=== PATIENT | female | born 1985 | race African-American/Black ===

== ENCOUNTER 2018-07-17 20:37 | Emergency (ER) | payer OTHER ==
[2018-07-17] MEDS: METOCLOPRAMIDE INJ 10MG/2ML VIAL (J2765) IV (22:29)
[2018-07-17] MEDS: NS 1,000 ML IV (22:30)
[2018-07-17] MEDS: KETOROLAC 30 MG/ML VIAL (J1885) IV (22:30)
[2018-07-17] MEDS: NORCO 5/325MG TABLET (BULK FOR ED) PO (23:40)
[2018-07-17] MEDS: ONDANSETRON 4MG/2ML VIAL (J2405) IV (23:40)
== END 2018-07-18 00:29 | disposition home or self-care (01) ==
LOC: M ED 07-18 00:29
DX: G43.909 Migraine, unspecified, not intractable, without status migrainosus (principal); Z88.5 Allergy status to narcotic agent
CPT/HCPCS: J2405

== ENCOUNTER 2018-11-02 15:17 | Emergency (ER) | payer OTHER ==
[~2018-11-02] VITALS: Ht 175.3 cm; Wt 65.9 kg
[~2018-11-02 15:17] MED LIST: EXCETAB80 PO; RIZA10TA2 PO; VITMTA PO
[2018-11-02] MEDS ORDERED: IRON27TA2 PO (15:22)
[2018-11-02] MEDS ORDERED: NS 1,000 ML IV ONE (15:45)
[2018-11-02 16:03] LABS: BASO % 0.5 % (0.0-1.0); EOS # 0.1 10^3/uL (0.0-0.50); EOS % 1.6 % (0.0-3.0); HEMATOCRIT 32.5 % (36.0-47.0); LYMPH # 1.7 10^3/uL (1.5-4.5); LYMPH % 21.4 % (24.0-44.0); MEAN CORPUSCULAR HEMOGLOBIN 20.8 pg (27.0-33.0); MEAN CORPUSCULAR HGB CONC 30.8 g/dl (32.0-36.5); MEAN CORPUSCULAR VOLUME 67.7 fl (80.0-96.0); MONO # 0.6 10^3/uL (0.0-0.8); MONO % 7.8 % (0.0-5.0); NEUTROPHILS # 5.4 10^3/uL (1.8-7.7); NEUTROPHILS % 68.2 % (36.0-66.0); PLATELET COUNT, AUTOMATED 340 10^3/uL (150-450)
[2018-11-02] MEDS ORDERED: METOCLOPRAMIDE INJ 10MG/2ML VIAL (J2765) IV ONE (16:30)
[2018-11-02 16:42] LABS: ALBUMIN 3.9 GM/DL (3.2-5.2); ALT/SGPT 30 U/L (12-78); BILIRUBIN,TOTAL 0.4 MG/DL (0.2-1.0); BLOOD UREA NITROGEN 4 MG/DL (7-18); CARBON DIOXIDE LEVEL 25 MEQ/L (21-32); CHLORIDE LEVEL 107 MEQ/L (98-107); CREATININE FOR GFR 0.66 MG/DL (0.55-1.30); GLOMERULAR FILTRATION RATE > 60.0 (>60); GLUCOSE, FASTING 74 MG/DL (70-100); HCG, SERUM QUANTITATIVE 68 MIU/ML; POTASSIUM SERUM 3.7 MEQ/L (3.5-5.1); SODIUM LEVEL 139 MEQ/L (136-145); TOTAL PROTEIN 8.1 GM/DL (6.4-8.2)
--- NOTE | 2018-11-02 17:22 | REPVR ---
EXAM: US First Trimester, Transabdominal and US , Transvaginal EXAM DATE/TIME: 11/02/2018 5:08 PM CLINICAL HISTORY: 32 years old, female; Signs and symptoms; Lmp or gestational age (in weeks): 4w5d; Other: Bleeding; ; Additional info: , bleeding TECHNIQUE: Real-time transabdominal obstetrical ultrasound of the maternal pelvis and a first trimester , less than 14 weeks 0 days, with image documentation. Transvaginal imaging was used for better evaluation of the fetus and adnexa. COMPARISON: No relevant prior studies available. FINDINGS: GESTATION: Gestation: No gestational sac demonstrated. No pole demonstrated. No yolk sac demonstrated. Heart rate: No cardiac activity demonstrated. Placenta: Unremarkable. No subchorionic bleed. Amniotic fluid: Amniotic and chorionic fluid are normal for gestational age. Estimated gestational age: 4.5 weeks by LMP of 09/30/2018 MATERNAL: Uterus: Uterus measures 8.4 x 4.1 x 5.6 cm. Endometrial echocomplex measures 5.7 mm. Cervix: Unremarkable. Right adnexa: 3 x 1.8 x 2.2 cm hypoechoic solid lesion in the right ovary with increased blood flow peripherally may indicate a corpus luteum. Left adnexa: Unremarkable. Intraperitoneal: No intraperitoneal free fluid. IMPRESSION: Empty uterus in a patient with a reportedly weakly positive test. Finding may indicate very early IUP prior to visualization of a gestational sac or fetus. Correlation with serial beta-hCG levels and follow ultrasound recommended in order to exclude ectopic verses very early or early failure. Electronically signed by: Ender Teixeira On 11/02/2018 17:22:42 PM
[2018-11-02] MEDS ORDERED: REGL10TA6 PO (17:29)
[2018-11-02 17:30] VITALS: BP 108/71
== END 2018-11-02 17:56 | disposition home or self-care (01) ==
LOC: M ED 15:17
DX: N93.9 Abnormal uterine and vaginal bleeding, unspecified (principal); R10.2 Pelvic and perineal pain; Z32.01 Encounter for pregnancy test, result positive; N83.201 Unspecified ovarian cyst, right side; Z88.5 Allergy status to narcotic agent; Z91.018 Allergy to other foods
CPT/HCPCS: 76801; 76817; 80053; 81001; 81025; 84702; 85025; 86850; 86900; 86901; 93976; 96361; 96374; 99284; J2765

== ENCOUNTER 2018-11-04 15:37 | Emergency (ER) | payer OTHER ==
[~2018-11-04] VITALS: Ht 175.3 cm; Wt 65.9 kg
[~2018-11-04 15:37] MED LIST changes: +IRON27TA2 PO; +REGL10TA6 PO
[2018-11-04] MEDS ORDERED: PRENTAB55 PO (15:49)
[2018-11-04 16:06] LABS: HEMOGLOBIN 9.5 g/dl (12.0-15.5); MEAN CORPUSCULAR HEMOGLOBIN 20.4 pg (27.0-33.0); MEAN CORPUSCULAR HGB CONC 30.6 g/dl (32.0-36.5); MEAN CORPUSCULAR VOLUME 66.7 fl (80.0-96.0); PLATELET COUNT, AUTOMATED 322 10^3/uL (150-450); RED BLOOD COUNT 4.65 10^6/uL (4.00-5.40); WHITE BLOOD COUNT 8.1 10^3/uL (4.0-10.0)
[2018-11-04 16:53] LABS: ALBUMIN 3.6 GM/DL (3.2-5.2); ALT/SGPT 37 U/L (12-78); BILIRUBIN,TOTAL 0.3 MG/DL (0.2-1.0); BLOOD UREA NITROGEN 7 MG/DL (7-18); CALCIUM LEVEL 8.9 MG/DL (8.5-10.1); CARBON DIOXIDE LEVEL 27 MEQ/L (21-32); CHLORIDE LEVEL 104 MEQ/L (98-107); CREATININE FOR GFR 0.65 MG/DL (0.55-1.30); GLOMERULAR FILTRATION RATE > 60.0 (>60); GLUCOSE, FASTING 87 MG/DL (70-100); HCG, SERUM QUANTITATIVE 70 MIU/ML; POTASSIUM SERUM 4.2 MEQ/L (3.5-5.1); SODIUM LEVEL 139 MEQ/L (136-145); TOTAL PROTEIN 7.8 GM/DL (6.4-8.2)
[2018-11-04 17:10] VITALS: BP 101/69
== END 2018-11-04 17:11 | disposition home or self-care (01) ==
LOC: M ED 15:37
DX: O20.8 Other hemorrhage in early pregnancy (principal); Z3A.01 Less than 8 weeks gestation of pregnancy; R10.2 Pelvic and perineal pain; O99.89 Other specified diseases and conditions complicating pregnancy, childbirth and the puerperium

== ENCOUNTER 2018-11-08 14:56 | Emergency (ER) | payer OTHER ==
[~2018-11-08] VITALS: Ht 175.3 cm; Wt 65.5 kg
[~2018-11-08 14:56] MED LIST changes: +PRENTAB55 PO
[2018-11-08 15:39] LABS: BASO % 0.5 % (0.0-1.0); EOS # 0.1 10^3/uL (0.0-0.50); HEMOGLOBIN 10.4 g/dl (12.0-15.5); LYMPH # 1.6 10^3/uL (1.5-4.5); LYMPH % 17.6 % (24.0-44.0); MEAN CORPUSCULAR HEMOGLOBIN 20.9 pg (27.0-33.0); MEAN CORPUSCULAR HGB CONC 30.6 g/dl (32.0-36.5); MEAN CORPUSCULAR VOLUME 68.3 fl (80.0-96.0); MONO # 0.7 10^3/uL (0.0-0.8); NEUTROPHILS # 6.4 10^3/uL (1.8-7.7); NEUTROPHILS % 72.6 % (36.0-66.0); PLATELET COUNT, AUTOMATED 376 10^3/uL (150-450); RED BLOOD COUNT 4.98 10^6/uL (4.00-5.40); WHITE BLOOD COUNT 8.8 10^3/uL (4.0-10.0)
[2018-11-08 17:53] VITALS: BP 100/68
--- NOTE | 2018-11-08 18:00 | REPVR ---
EXAM: US First Trimester, Transabdominal EXAM DATE/TIME: 11/08/2018 5:02 PM CLINICAL HISTORY: 32 years old, female; Signs and symptoms; Lmp or gestational age (in weeks): 5w 4d; Other: Vaginal bleeding x 1 week; ; Prior surgery; Surgery date: 6+ months; Surgery type: C- section 5 years ago; Additional info: R/O incomplete ab TECHNIQUE: Real-time transabdominal obstetrical ultrasound of the maternal pelvis and a first trimester , less than 14 weeks 0 days, with image documentation. COMPARISON: 1ST TRIMESTER US 11/02/2018 4:48 PM FINDINGS: GESTATION: Gestation: No intrauterine gestational sac is identified. There is a linear fluid collection within the endometrium measuring approximately 2 cm. This would be suspicious for incomplete spontaneous . The fluid may be some residual serous fluid. According to history the hCG levels have been decreasing and now only 52. Abdomen: There is a small amount of urine in the urinary bladder and therefore the urinary bladder cannot be completely assessed. MATERNAL: Uterus: The uterus measures 8.2 CM in length by 4.1 CM in AP dimension by 5.8 CM in transverse dimension. Right adnexa: There is vascular flow of the right ovary with no evidence of torsion. The right ovary measures 2.9 CM in length by 2.7 cm thickness. There is a 1.5 CM echogenic structure possibly a hemorrhagic corpus luteum. Left adnexa: There is vascular flow to left ovary with no evidence of torsion. The left ovary measures 3.9 CM in length by 2 CM in thickness. Intraperitoneal: There is no evidence of free fluid in the pelvis. IMPRESSION: 1. No evidence of intrauterine gestational sac but only a small linear collection of serous fluid. This probably represents spontaneous . 2. Echogenic corpus luteum cyst right ovary. Electronically signed by: Man Gaines On 11/08/2018 18:00:34 PM
== END 2018-11-08 17:57 | disposition home or self-care (01) ==
LOC: M ED 17:18
DX: O20.9 Hemorrhage in early pregnancy, unspecified (principal); Z88.5 Allergy status to narcotic agent; Z91.018 Allergy to other foods; Z3A.00 Weeks of gestation of pregnancy not specified

== ENCOUNTER → 2018-11-18 | Outpatient (CLI) | payer OTHER ==
--- NOTE | 2018-11-18 16:27 | REP ---
Pelvic sonography: History: Retained products of conception. Status post spontaneous AB October 15, 2018 with continued bleeding and cramping. Sonographic findings: Transabdominal and transvaginal scanning are performed. Uterine dimensions are normal at 7.9 x 4.3 x 5.7 cm. Endometrial echo is 0.7 cm thick. A scar is visible in the anterior aspect of the lower uterine segment. There is a small quantity of endocervical fluid. There is no sonographic evidence to suggest retained products conception in the endometrium. Urinary bladder castellanos are smooth and thin. There is a very small quantity of fluid in the peritoneum reflections. A complex cyst is seen in the right adnexa 4.3 x 4.4 x 4.1 cm consistent with a hemorrhagic follicle cyst. Right ovary measures 5.6 x 5.6 x 5.1 cm inclusive of this. Right ovarian Doppler flow is normal, resistive index is 0.49. Left ovary has a normal appearance with dimensions of 3.6 x 2.7 x 2.7 cm. Doppler flow in the left ovary is normal with resistive index 0.50. Impression: Complex right ovarian cyst 4.4 cm in greatest diameter consistent with hemorrhagic follicle. scar. No sonographic evidence retained products of conception. Electronically Signed by Jovany Beck MD 11/18/2018 06:16 P
== END ==
LOC: M LAB 14:35
PROVIDERS: ATTEND Obstetrics & Gynecology
DX: O20.9 Hemorrhage in early pregnancy, unspecified (principal); O26.892 Other specified pregnancy related conditions, second trimester; R10.2 Pelvic and perineal pain; Z3A.00 Weeks of gestation of pregnancy not specified

== ENCOUNTER → 2018-11-27 | Outpatient (CLI) | payer OTHER ==
--- NOTE | 2018-11-27 21:47 | REP ---
Clinical: Rising HCG levels. Technique: Transabdominal and transvaginal first trimester obstetrical ultrasound with color Doppler evaluation. Findings: Heterogeneous uterus measures 8.0 x 4.4 x 4.7 cm. Endometrial complex measures 7.3 mm thickness and no intrauterine is identified. The bilateral ovaries are normal in vascularity without torsion. The right ovary measures 6.6 x 3.7 x 5.3 cm and includes two complex cysts measuring 4.9 cm and 2.9 cm maximal diameter; RI 0.51. The left ovary measures 4.0 x 2.2 x 1.9 cm; RI 0.45. A solid masses identified inferolateral to the right ovary strain 2.5 x 1.6 x 2.7 cm and a small amount of right adnexal free fluid is appreciated. These findings are nonspecific but suspicious for ectopic which cannot be excluded. Impression: 1. No intrauterine is identified. 2. 2.7 cm mass inferior to the right ovary is identified and in light of the given history of rising HCG levels, ectopic must be considered. Electronically Signed by Alfa Oshea MD 11/27/2018 09:38 P
== END ==
LOC: M RAD 10:51
PROVIDERS: ATTEND Obstetrics & Gynecology
DX: O03.9 Complete or unspecified spontaneous abortion without complication (principal); N83.201 Unspecified ovarian cyst, right side

== ENCOUNTER → 2018-12-05 | Outpatient (CLI) | payer OTHER | LOC: M LAB 17:15 | PROVIDERS: ATTEND Obstetrics & Gynecology | DX: Z32.00 Encounter for pregnancy test, result unknown (principal) ==

== ENCOUNTER 2019-03-10 19:13 | Emergency (ER) | payer OTHER ==
[~2019-03-10] VITALS: Ht 175.3 cm; Wt 65.9 kg
[2019-03-10 20:47] LABS: BASO # 0.1 10^3/uL (0.0-0.2); BASO % 0.8 % (0.0-1.0); EOS # 0.1 10^3/uL (0.0-0.50); EOS % 1.4 % (0.0-3.0); HEMATOCRIT 33.7 % (36.0-47.0); HEMOGLOBIN 10.2 g/dl (12.0-15.5); LYMPH # 2.1 10^3/uL (1.5-4.5); LYMPH % 31.9 % (24.0-44.0); MEAN CORPUSCULAR HEMOGLOBIN 20.2 pg (27.0-33.0); MEAN CORPUSCULAR HGB CONC 30.3 g/dl (32.0-36.5); MEAN CORPUSCULAR VOLUME 66.9 fl (80.0-96.0); MONO # 0.7 10^3/uL (0.0-0.8); MONO % 10.8 % (0.0-5.0); NEUTROPHILS # 3.6 10^3/uL (1.8-7.7); NEUTROPHILS % 54.8 % (36.0-66.0); PLATELET COUNT, AUTOMATED 329 10^3/uL (150-450); RED BLOOD COUNT 5.04 10^6/uL (4.00-5.40); WHITE BLOOD COUNT 6.6 10^3/uL (4.0-10.0)
--- NOTE | 2019-03-10 23:49 | REPVR ---
EXAM: US First Trimester, Transabdominal and US , Transvaginal EXAM DATE/TIME: 03/10/2019 10:38 PM CLINICAL HISTORY: 33 years old, female; complicated by abdominal or pelvic pain; Left lower quadrant; First trimester; Gestational age or lmp: Lmp3/31/19; ; Additional info: Recent R ectopic/tonight L pain TECHNIQUE: Imaging protocol: Real-time transabdominal obstetrical ultrasound of the maternal pelvis and a first trimester , less than 14 weeks 0 days, with image documentation. Transvaginal imaging was used for better evaluation of the fetus and adnexa. COMPARISON: No relevant prior studies available. FINDINGS: GESTATION: Gestation: Intrauterine gestation. No pole seen. Yolk sac present. Heart rate: Sought but not visualized. Placenta: Sought but not visualized. Amniotic fluid: Amniotic and chorionic fluid are normal for gestational age. BIOMETRY: Estimated gestational age: Estimated gestational age is 5 weeks 4 days by mean sac diameter. Mean sac diameter: Mean sac diameter is 8.2 mm. Estimated due date: Estimated due date is 11/08/2019. MATERNAL: Uterus: Uterus measures 8.5 x 4.8 x 5.1 cm. Unremarkable is uterus. Cervix: Unremarkable. Right adnexa: Right ovary is 2.9 x 2.3 x 2.8 cm. No masses. Normal vascular flow. Left adnexa: Left ovary measures 4.4 x 3.2 x 2.6 cm. Hypoechoic cyst in the left ovary measuring 2.1 x 1.9 x 2.1 cm. Normal vascular flow. Intraperitoneal: No intraperitoneal free fluid. IMPRESSION: 1. Intrauterine gestation. Only yolk sac is seen. 2. Estimated gestational age is 5 weeks 4 days. 3. Hypoechoic cyst in the left ovary. Consistent with hemorrhagic cyst. No followup is necessary. 4. Recommend followup OB ultrasound to confirm viability in 7-10 days. Electronically signed by: Jing Miller On 03/10/2019 23:48:58 PM
[2019-03-10 23:54] VITALS: BP 104/63
== END 2019-03-10 23:55 | disposition home or self-care (01) ==
LOC: M ED 19:13
DX: Z34.00 Encounter for supervision of normal first pregnancy, unspecified trimester (principal); Z3A.01 Less than 8 weeks gestation of pregnancy; Z87.59 Personal history of other complications of pregnancy, childbirth and the puerperium; Z88.5 Allergy status to narcotic agent; Z91.018 Allergy to other foods

== ENCOUNTER → 2019-03-12 | Outpatient (CLI) | payer OTHER ==
--- NOTE | 2019-03-13 06:13 | REP ---
Clinical: Dating and viability . Technique: Transabdominal and transvaginal first trimester obstetrical ultrasound with color Doppler evaluation. Findings: Anteverted uterus measures 8.4 x 4.1 x 5.1 cm and includes a gestational sac with yolk sac. Mean sac diameter of 12 mm corresponds to 6 weeks 0 days gestational age. Bilateral maternal ovaries are relatively normal in appearance and vascularity. Right ovary measures 2.4 x 1.6 x 2.1 cm; RI 0.57. Left ovary measures 3.7 x 2.6 x 2.2 cm with 2.4 cm presumed corpus luteum; RI 0.33. Impression: Findings suggest early intrauterine . Differential diagnosis may include blighted ovum. Correlation with serial HCG levels and reevaluation may be warranted. Electronically Signed by Alfa Oshea MD 03/13/2019 06:06 A
== END ==
LOC: M RAD 13:53
PROVIDERS: ATTEND Obstetrics & Gynecology
DX: Z34.80 Encounter for supervision of other normal pregnancy, unspecified trimester (principal); Z3A.00 Weeks of gestation of pregnancy not specified

== ENCOUNTER → 2019-03-20 | Outpatient (CLI) | payer OTHER ==
--- NOTE | 2019-03-20 17:05 | REP ---
FIRST TRIMESTER OB ULTRASOUND: 03/20/2019. Comparison. 03/12/2019. Clinical history is 6 weeks 5 days by LMP. Please evaluate status of . Transabdominal imaging is performed. Uterus is anteverted. There is a gestational sac in the fundus. pole is noted measuring 8 mm and crown rump length of 8 mm corresponding to 6 weeks 5 days giving EDC 11/08/2019. This the precisely matches dating by LMP. heart activity noted 160. No evidence of a subchorionic bleed at this time. Left ovary 2.8 x 2.5 x 2.5 cm. Within is a 1.7 x 1.7 x 1.5 cm presumed corpus luteum cyst. Doppler tracing shows resistive index of 0.49 for the left ovary. The right ovary appears normal and has color flow within. Impression: 1. Single intrauterine gestation with crown-rump length 8 mm corresponding to 6 weeks 5 days, precisely matching dating from LMP. This would give an EDC 11/08/2019. 2. Heart rate 160 and regular. No subchorionic bleed. 3. A 1.7 x 1.7 x 1.5 cm corpus luteum cyst on the left. No pelvic free fluid. No right adnexal mass or other abnormality. Electronically Signed by Javier Cabrales MD 03/20/2019 05:19 P
== END ==
LOC: M RAD 13:49
PROVIDERS: ATTEND Obstetrics & Gynecology
DX: Z36.89 Encounter for other specified antenatal screening (principal); Z3A.01 Less than 8 weeks gestation of pregnancy; N83.12 Corpus luteum cyst of left ovary

== ENCOUNTER 2019-04-10 18:57 | Emergency (ER) | payer OTHER ==
[~2019-04-10] VITALS: Ht 175.3 cm; Wt 66.8 kg
[2019-04-10 18:59] VITALS: BP 111/71
== END 2019-04-10 20:17 | disposition left against medical advice (07) ==
LOC: M ED 18:57
DX: Z53.29 Procedure and treatment not carried out because of patient's decision for other reasons (principal)

== ENCOUNTER 2019-07-08 21:18 | Outpatient (CLI) | payer OTHER ==
[2019-07-08 22:29] LABS: APPEARANCE, URINE CLEAR (CLEAR); BACTERIA, URINE AUTO NEGATIVE (NEGATIVE); BILIRUBIN, URINE AUTO NEGATIVE (NEGATIVE); BLOOD, URINE BLOOD NEGATIVE (NEGATIVE); CALCIUM OXALATE CRYSTALS SMALL; COLOR, URINE YELLOW (YELLOW); GLUCOSE, URINE (UA) AUTO NEGATIVE (NEGATIVE); KETONE, URINE AUTO NEGATIVE (NEGATIVE); LEUKOCYTE ESTERASE, URINE AUTO NEGATIVE (NEGATIVE); MUCUS, URINE SMALL (NEGATIVE); NITRITE, URINE AUTO NEGATIVE (NEGATIVE); PROTEIN, URINE AUTO NEGATIVE (NEGATIVE); RBC, URINE AUTO 1 /HPF (0-3); SPECIFIC GRAVITY URINE AUTO 1.019 (1.002-1.035); SQUAMOUS EPITHELIAL CELL UR AU 2 /HPF (0-6); UROBILINOGEN, URINE AUTO 0.2 mg/dL (0.0-2.0); WBC, URINE AUTO 1 /HPF (0-3)
--- NOTE | 2019-07-09 07:34 | HPE ---
DATE OF ADMISSION: 07/08/2019 This lady is a 33-year-old 4, para 2, abortio 1, last menstrual period (LMP) 02/01/2019, estimated date of delivery (EDC) 11/08/2019. She is at 22 weeks of gestation with questionable spontaneous rupture of membranes uncertain if this is post intercourse. She has had no vaginal bleeding or discharge since. PAST HISTORY: 2012 at 40 weeks, section, induction of labor for non-reassuring heart tones. Cord times one, she was 6 cm dilated, 6 pounds 6 ounces. 2014 at 39 weeks had a successful vaginal after (), 8 pounds 7 ounces. 2017 had an ectopic treated with methotrexate resolved. RISK FACTORS: Previous section, and herpes simplex virus (HSV) positive. Apparent today, there is no lab work in her chart. She is not on any acute distress. Symphysis fundus height is 20. heart sounds are present and ultrasound with three quadrants vertical total of 15.45 cm amniotic fluid. Good limb motion. The baby is very active. Cardiac activity was noted. Cervix was closed. On the sterile speculum examination vagina was healthy, no evidence of discharge or bleeding. Had recent intercourse. Slide was done, there was no ferning. No yeast. No bacterial vaginosis (BV)/ There was sperm in place. Nitrazine was negative. Urine was 1.019, pH 6 and negative. Blood pressure 111/76, respirations 18, pulse 96, temperature 97.8. In summary we have a 22+ week of gestation with increasing leukorrhea. No evidence of spontaneous rupture of membranes or discharge. Instructions were given she must bring her passport at each intervention. 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 She has an appointment at [facility] and she is to maintain that appointment. The patient was discharged expressing understanding of the issues.
== END 2019-07-08 23:25 | disposition home or self-care (01) ==
LOC: M LDO 21:18
PROVIDERS: ATTEND Obstetrics & Gynecology
DX: O26.892 Other specified pregnancy related conditions, second trimester (principal); N89.8 Other specified noninflammatory disorders of vagina; Z3A.22 22 weeks gestation of pregnancy

== ENCOUNTER 2019-08-05 10:07 | Emergency (ER) | payer OTHER ==
[~2019-08-05] VITALS: Ht 175.3 cm; Wt 70.5 kg
[2019-08-05] MEDS ORDERED: UNIS25TA3 PO (10:18)
[2019-08-05] MEDS ORDERED: PREN1TAB18 PO (10:18)
[2019-08-05] MEDS ORDERED: NS 1,000 ML IV ONE ×2 (10:30)
[2019-08-05 11:22] LABS: BASO % 0.5 % (0.0-1.0); EOS # 0.1 10^3/uL (0.0-0.5); EOS % 0.8 % (0.0-3.0); HEMATOCRIT 29.4 % (36.0-47.0); LYMPH # 1.4 10^3/uL (1.5-5.0); LYMPH % 21.3 % (24.0-44.0); MEAN CORPUSCULAR HEMOGLOBIN 21.4 pg (27.0-33.0); MEAN CORPUSCULAR HGB CONC 30.6 g/dl (32.0-36.5); MONO # 0.6 10^3/uL (0.0-0.8); MONO % 8.9 % (0.0-5.0); NEUTROPHILS # 4.5 10^3/uL (1.5-8.5); NEUTROPHILS % 67.6 % (36.0-66.0); PLATELET COUNT, AUTOMATED 165 10^3/uL (150-450); WHITE BLOOD COUNT 6.6 10^3/uL (4.0-10.0)
[2019-08-05 11:47] LABS: BLOOD UREA NITROGEN 3 MG/DL (7-18); CALCIUM LEVEL 8.1 MG/DL (8.5-10.1); CARBON DIOXIDE LEVEL 22 MEQ/L (21-32); CHLORIDE LEVEL 110 MEQ/L (98-107); CREATININE FOR GFR 0.52 MG/DL (0.55-1.30); FREE T4 1.09 NG/DL (0.76-1.46); GLOMERULAR FILTRATION RATE > 60.0 (>60); GLUCOSE, FASTING 72 MG/DL (70-100); MAGNESIUM LEVEL 1.6 MG/DL (1.8-2.4); POTASSIUM SERUM 3.8 MEQ/L (3.5-5.1); SODIUM LEVEL 141 MEQ/L (136-145); THYROID STIMULATING HORMONE 0.851 uIU/ML (0.358-3.740)
[2019-08-05 13:45] VITALS: BP 89/56
[2019-08-05] MEDS ORDERED: MAPA500T2 PO (16:00)
--- NOTE | 2019-08-05 20:43 | ECGEPIP ---
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
--- NOTE | 2019-08-05 20:46 | ECGEPIP ---
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
== END 2019-08-05 14:07 | disposition admitted as inpatient to this hospital (09) ==
LOC: M ED 10:07
DX: O99.412 Diseases of the circulatory system complicating pregnancy, second trimester (principal); R00.0 Tachycardia, unspecified; R94.31 Abnormal electrocardiogram [ECG] [EKG]; Z3A.26 26 weeks gestation of pregnancy; Z88.6 Allergy status to analgesic agent; Z91.018 Allergy to other foods

== ENCOUNTER 2019-08-05 14:08 | Outpatient (CLI) | payer OTHER ==
[~2019-08-05] VITALS: Ht 175.3 cm; Wt 71.4 kg
[~2019-08-05 14:08] MED LIST changes: +PREN1TAB18 PO; +UNIS25TA3 PO
[2019-08-05 15:54] VITALS: BP 97/58
[2019-08-05 15:55] VITALS: BP 105/56
[2019-08-05] MEDS ORDERED: MAPA500T2 PO (16:00)
--- NOTE | 2019-08-05 16:55 | IPNPDOC ---
Text Note Date of Service The patient was seen on 08/05/19. NOTE OB Considerations: 1. Hx of C/S with subsquent , consult at 28-32 weeks 2. Vegan ~ 3. HSV on lab work, has not had an outbreak, Valtrex at 36 weeks Nery is a 33yo at 26+3wks by LMP ([id number]) presents from ER for NST. She was evaluated for racing heart, feeling faint, short of breath, nauseated with some vomiting. She reports this started while she was at work this morning. She reports that the symptoms did not resolved with rest. She said it felt like she had ran miles. In the ER, she was noted to have a narrow complex tachycardia which converted after 2 L fluid bolus. She said since that time, all of her symptoms have resolved. She otherwise is feeling fine from an Obstetric standpoint. She denies ctx, vaginal bleeding, LOF, headache, vision changes, RUQ pain. She reports active movement. VS: Reviewed, normotensive, afebrile, HR 100bpm GEN: WNWD, NAD ABD: Soft, Gravid, NT EXT: no edema FHR: 140bpm, moderative variability - appropriate for gestational age Hayes: quiet A/P: SIUP at 26wks presenting for NST after ER evaluation and resolution of symptoms. VS Reviewed, NST appropriate for gestational age, no contractions noted. She is to call cardiology for follow up. - Discussed strict return precautions, PTL precautions - Encouraged hydration - Has follow up on 15Oct in OBGYN clinic All questions were answered to patient's apparent satisfaction DO JUAN CARLOS Bhakta CRYSTAL B. DO Aug 05, 2019 16:55
== END 2019-08-05 16:15 | disposition home or self-care (01) ==
LOC: M LDO 14:08
PROVIDERS: ATTEND Obstetrics & Gynecology
DX: O99.89 Other specified diseases and conditions complicating pregnancy, childbirth and the puerperium (principal); R09.89 Other specified symptoms and signs involving the circulatory and respiratory systems; R00.0 Tachycardia, unspecified; O21.2 Late vomiting of pregnancy; Z3A.26 26 weeks gestation of pregnancy
CPT/HCPCS: G0378; G0463

== ENCOUNTER 2019-09-05 22:28 | Outpatient (CLI) | payer OTHER ==
[~2019-09-05] VITALS: Ht 157.5 cm; Wt 71.5 kg
[~2019-09-05 22:28] MED LIST changes: +MAPA500T2 PO
[2019-09-05 23:10] VITALS: BP 108/65
--- NOTE | 2019-09-06 18:49 | HPE ---
DATE OF ADMISSION: 09/05/2019 HISTORY: A 33-year-old 4, para 2-4-1, last menstrual period (LMP) 02/01/2019, estimated date of confinement (EDC) 11/08/2019 at 30 and 6 weeks of gestation, history of decreased movement today and yesterday. Her 5 or 6-year-old fell on her abdomen. She did not report it, did not come in. RISK FACTORS: 1. She has had a previous section. 2. She has had a trial of labor after (TOLAC). 3. She has had a herpes simplex virus (HSV) episode, none in this . 4. 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 PAST HISTORY: 1. In 2012, 40 weeks section, failure to dilate, non-reassuring heart tones, 6 pounds 6 ounce female 2. 2014, at 39 weeks, vaginal after section () successfully, 8 pounds 3 ounces 3. In 10/2019 had an ectopic , method of resolution is unknown. LABORATORIES: B positive, hepatitis negative, rapid plasma reagin (RPR) negative, rubella immune. Varicella immune. Pap normal. Urine was positive but with 100,000 mixed jarred and she has not done her HIV or her glucose tolerance test (GTT). PHYSICAL EXAMINATION: No distress. Symphysis fundus height is 32. Four quadrant bowel sounds are noted. section scar. Vertex presenting. Category one strip. Temperature 98.3, blood pressure 108/65, respirations are 16, pulse is still 103. Urine is 10/20, pH 6 and negative. SUMMARY: We have a 30 and 6 weeks gestation with decreased movements, reassuring heart tones. The patient was discharged to followup in the office at her usual appointment, 09/14/2019, still required to see cardiology and encouraged to her lab work.
== END 2019-09-06 00:13 | disposition home or self-care (01) ==
LOC: M LDO 22:28
PROVIDERS: ATTEND Obstetrics & Gynecology
DX: O36.8130 Decreased fetal movements, third trimester, not applicable or unspecified (principal); Z3A.30 30 weeks gestation of pregnancy
CPT/HCPCS: 59025; G0378; G0463

== ENCOUNTER 2019-11-08 04:48 | Inpatient (IN) | payer OTHER ==
[~2019-11-08] VITALS: Ht 175.3 cm; Wt 73.3 kg
[2019-11-08] VITALS (44 sets, daily range): BP systolic 91–139; BP diastolic 55–83
[2019-11-08] MEDS ORDERED: LR 1,000 ML IV SCH (05:15)
[2019-11-08] MEDS ORDERED: IRON65TA2 PO (05:40)
[2019-11-08] MEDS ORDERED: VALT500T PO (05:44)
[2019-11-08] MEDS ORDERED: VITA100T59 PO (05:44)
[2019-11-08 05:45] LABS: HEMATOCRIT 36.6 % (36.0-47.0); MEAN CORPUSCULAR HEMOGLOBIN 21.4 pg (27.0-33.0); MEAN CORPUSCULAR HGB CONC 30.1 g/dl (32.0-36.5); MEAN CORPUSCULAR VOLUME 71.2 fl (80.0-96.0); PLATELET COUNT, AUTOMATED 156 10^3/uL (150-450); RED BLOOD COUNT 5.14 10^6/uL (4.00-5.40); WHITE BLOOD COUNT 9.6 10^3/uL (4.0-10.0)
[2019-11-08] MEDS ORDERED: FENTANYL 2MCG/ML ROPIVACAINE 0.2% IN 0.9% NACL 100ML IVBAG As Ordered ONE (05:56)
[2019-11-08] MEDS ORDERED: OXYTOCIN 30 UNITS IN 0.9% NaCl 500ML IV BAG (J2590) As Ordered ONE ×2 (06:19→08:45)
[2019-11-08] MEDS ORDERED: NALOXONE INJ 0.4 MG/1 ML VIAL (J2310) IV PRN (07:15)
[2019-11-08] MEDS ORDERED: diphenhydrAMINE INJ 50MG/ML VIAL (J1200) IV PRN (07:15)
[2019-11-08] MEDS ORDERED: FENTANYL/ROPIVACAINE/NACL BAG 100 ML EPIDURAL SCH (07:15)
[2019-11-08] MEDS ORDERED: LACTATED RINGER'S 1000 ML IV PRN (07:15)
[2019-11-08] MEDS ORDERED: REFRIGERATOR IV KEYS XX PRN (07:15)
[2019-11-08] MEDS ORDERED: ONDANSETRON 4MG/2ML VIAL (J2405) IV PRN (07:15)
[2019-11-08] MEDS ORDERED: EPIDURAL/PCA KEYS XX PRN (07:15)
[2019-11-08] MEDS ORDERED: EPIDURAL COMMENT XX SCH (07:15)
[2019-11-08] MEDS ORDERED: ePHEDrine SULFATE 25 MG/5 ML(5MG/ML) SYRINGE IV PRN (07:15)
[2019-11-08] MEDS: OXYTOCIN DRIP 30 UNITS in IV 1 EA IV SCH ×2 (07:59→08:52)
[2019-11-08] MEDS: miSOPROStol 100 MCG TAB (S0191) PR ONE ×2 (08:02→08:30)
[2019-11-08 08:19] LABS: CORD GAS ABE A -3.3; CORD GAS ABE V -3.4; CORD GAS HCO3 A 23.6 MEQ/L; CORD GAS HCO3 V 20.5 MEQ/L; CORD GAS O2 SAT A 59.2 %; CORD GAS O2 SAT V 82.5 %; CORD GAS PCO2 A 49.4 mmHg; CORD GAS PCO2 V 33.4 mmHg; CORD GAS PH A 7.297 UNITS; CORD GAS PH V 7.405 UNITS; CORD GAS PO2 A 24.8 mmHg; CORD GAS SBC A 20.9 MEQ/L; CORD GAS SBC V 21.4 MEQ/L; CORD GAS TCO2 A 25.1 MEQ/L; CORD GAS TCO2 V 21.5 MEQ/L
[2019-11-08] MEDS ORDERED: METHYLERGONOVINE MALEATE 0.2 MG/ML VIAL (J2210) As Ordered ONE (08:19)
[2019-11-08] MEDS ORDERED: MOM 30ML SUSPENSION UDC PO PRN (08:30)
[2019-11-08] MEDS ORDERED: METHYLERGONOVINE MALEATE 0.2 MG TAB PO PRN (08:30)
[2019-11-08] MEDS ORDERED: DIBUCAINE 1% OINTMENT 30GM TOP PRN (08:30)
[2019-11-08] MEDS ORDERED: ACETAMINOPHEN 500 MG TAB PO PRN (08:30)
[2019-11-08] MEDS ORDERED: ACETAMINOPHEN TAB 650MG DOSE (2X325MG) PO PRN (08:30)
[2019-11-08] MEDS ORDERED: MEASLES,MUMPS,RUBELLA VACCINE INJ (MMR-II) (90707) SC SCH (08:30)
[2019-11-08] MEDS ORDERED: ANUSOL HC CREAM 30GM TOP PRN (08:30)
[2019-11-08] MEDS ORDERED: METHYLERGONOVINE MALEATE 0.2 MG/ML VIAL (J2210) IM ONE (08:30)
[2019-11-08] MEDS ORDERED: CARBOPROST TROMETHAMINE 250 MCG/ML AMP IM ONE (08:30)
[2019-11-08] MEDS ORDERED: miSOPROStol 200 MCG TAB (S0191) PR ONE (08:30)
[2019-11-08] MEDS ORDERED: RHOGAM 300 MCG (1500 IU) INJ (J2790) IM SCH (08:30)
[2019-11-08] MEDS ORDERED: IBUPROFEN 800 MG TAB PO PRN (08:30)
[2019-11-08] MEDS ORDERED: OXYTOCIN INJ 10 UNITS/ML VIAL (J2590) IV ONE (08:30)
[2019-11-08] MEDS ORDERED: DOCUSATE SODIUM 100 MG CAP PO PRN (08:30)
[2019-11-08] MEDS: PRENATAL VITAMINS CHEWABLE TABLET PO SCH (09:00)
[2019-11-08 10:35] LABS: HEMATOCRIT 33.6 % (36.0-47.0); HEMOGLOBIN 10.1 g/dl (12.0-15.5); MEAN CORPUSCULAR HEMOGLOBIN 21.4 pg (27.0-33.0); MEAN CORPUSCULAR HGB CONC 30.1 g/dl (32.0-36.5); MEAN CORPUSCULAR VOLUME 71.3 fl (80.0-96.0); PLATELET COUNT, AUTOMATED 149 10^3/uL (150-450); RED BLOOD COUNT 4.71 10^6/uL (4.00-5.40); WHITE BLOOD COUNT 12.6 10^3/uL (4.0-10.0)
[2019-11-08] MEDS ORDERED: METHYLERGONOVINE MALEATE 0.2 MG TAB PO SCH (12:00)
--- NOTE | 2019-11-08 15:00 | HPE ---
DATE OF ADMISSION: 11/08/2019 HISTORY: A 33-year-old 4, para 2, abortus 1, last menstrual period (LMP) 02/01/2019, estimated date of confinement (EDC) 11/08/2019 at 40 weeks gestation with spontaneous labor and desires a trial of labor after (TOLAC). Risk factors are she has had a previous section. She has had a successful TOLAC. Pelvis was proven to 8 pounds, herpes simplex virus (HSV) prophylaxis and she has had a history of supraclavicular tachycardias (SVTs), not evaluated. PAST HISTORY: 1. 2012 at 40 weeks: Section, 6 pounds 6 ounces, failure to dilate, nonreassuring heart tones. 2. 2014: TOLAC, successful 8 pounds 3 ounces. 3. 2017: Ectopic , side undisclosed. LABORATORY: B positive. Hepatitis negative. Rapid plasma reagin (RPR) negative. Rubella immune. Pap normal. Urine was mixed jarred. One hour glucose 125. Group B Streptococcus (GBS) negative. HIV was negative and herpes simplex virus (HSV) was positive. Hemoglobin 11.0, hematocrit 36.6 and platelets 156. Blood pressure is 109/80, respirations 18, pulse is 97, temperature 97.4. EXAMINATION: Distressed female. Symphysis fundus height is 40, vertex. Four quadrant bowel sounds. Incision is clean and dry, is nontender. -3 station, 6-7 cm, 70% effaced, not ruptured. The rest of the examination unremarkable. She is normocephalic, atraumatic. Neck full range of motion. Pupils equal and reactive to light. Distal pulses are symmetric. No evidence of deep venous thrombosis (DVT), pulmonary embolism (PE) or superficial phlebitis. Chest is clear to bilateral bases. No wheezes or rhonchi. No costovertebral angle (CVA) tenderness. Abdomen is soft. Four quadrant bowel sounds, as mentioned, were normal. Appropriate symphysis fundus height and category one strip. No rashes, lesions or pruritus. No arthralgias, myalgias. No complaint of joint pain. No complaint of cough, wheeze, shortness of breath or dyspnea on exertion. No nausea, vomiting, diarrhea or constipation. No diabetic issues. Normal Pap smear. No sexually transmitted diseases (STDs). PAST MEDICAL HISTORY: Unremarkable. PAST SURGICAL HISTORY: section. FAMILY HISTORY: Noncontributory. She does not smoke, drink or abuse drugs. No domestic violence. 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 We discussed the consent for a vaginal delivery, which is delivery through the vagina with a possible assistance of forceps or vacuum devices if needed, maternal or indications, forceps or vacuums or devices that can assist with vaginal delivery when normal pushing and efforts cannot achieve delivery on their own or when deliveries needed in an emergency for baby's well-being. Medications may be used to augment or induce labor in order to achieve vaginal delivery and episiotomy may or may not be required to help baby through the vagina. You may also require repair of any lacerations or tears of your vagina or vulva that may occur at delivery. In some cases, emergencies can arise, especially since you are requesting a TOLAC, for emergency section for maternal or indications. It may be quick and therefore, consents are not signed, but the provider will discuss the reason and they are only done for medical indications. section is delivery of the baby through an incision in the abdomen through the previous one, which may be safer for both mother and baby, and because continuing labor may be critical to baby's survival. The risks of vaginal delivery include, but are not limited to bleeding, infection, injury to the vagina, pelvic structures, injury to baby, damage to the uterus, reaction to anesthesia, uterine rupture, risk of hysterectomy for life-threatening bleeding situations. Medications used to induce or augment labor may increase risk of infection, uterine tachysystole, uterine rupture, heart rate abnormalities, need for emergency section, or possible hysterectomy and hemorrhage. In addition, risks of the use of forceps and vacuum include scratches, hematomas to the head or intracranial bleed. Added risks for a TOLAC are increased risk of ruptured uterus, less than 1%, increased risk of blood transfusion, increased risk of hysterectomy and . The patient verbalized understanding. A 40-minute discussion. All questions were answered. We are awaiting anesthesia for epidural.
[2019-11-08 15:20] LABS: HEMATOCRIT 32.9 % (36.0-47.0); HEMOGLOBIN 9.9 g/dl (12.0-15.5); MEAN CORPUSCULAR HEMOGLOBIN 21.5 pg (27.0-33.0); MEAN CORPUSCULAR HGB CONC 30.1 g/dl (32.0-36.5); MEAN CORPUSCULAR VOLUME 71.5 fl (80.0-96.0); PLATELET COUNT, AUTOMATED 147 10^3/uL (150-450); WHITE BLOOD COUNT 11.3 10^3/uL (4.0-10.0)
[2019-11-08] MEDS: IBUPROFEN 600 MG TAB PO PRN (17:20)
[2019-11-08] MEDS: METHYLERGONOVINE MALEATE 0.2 MG TAB PO SCH ×2 (17:28→22:53)
[2019-11-08 20:23] LABS: HEMATOCRIT 32.3 % (36.0-47.0); HEMOGLOBIN 9.8 g/dl (12.0-15.5); MEAN CORPUSCULAR HEMOGLOBIN 21.7 pg (27.0-33.0); MEAN CORPUSCULAR HGB CONC 30.3 g/dl (32.0-36.5); MEAN CORPUSCULAR VOLUME 71.5 fl (80.0-96.0); PLATELET COUNT, AUTOMATED 151 10^3/uL (150-450); RED BLOOD COUNT 4.52 10^6/uL (4.00-5.40); WHITE BLOOD COUNT 10.3 10^3/uL (4.0-10.0)
[2019-11-09 02:24] VITALS: BP 97/62
[2019-11-09] MEDS: METHYLERGONOVINE MALEATE 0.2 MG TAB PO SCH ×2 (05:42→10:38)
[2019-11-09 06:50] VITALS: BP 102/64
--- NOTE | 2019-11-09 09:10 | IPN ---
DATE: 11/08/2019 at 8:45 a.m. We are reassessing this lady for bleeding and atonic uterus. Presently, she is hemodynamically stable and blood pressure is 109/69. Pulse is 104. Temperature is not available. Her oxygen saturations are at 100%. At digital examination, it revealed moderate amount of clots to the uterus. We swept the uterus again, making sure it was completely clean. Again, we reevaluated the post section cervical line, which was intact. The castellanos - lateral, anterior and posterior were intact. She expressed another 300 mL of clot, which brings this to 1200 mL. Presently, the next option for uterine contractility is Hemabate, which was ordered, and we will reevaluate her in 10-15 minutes time. Nicholson catheter is draining clear urine. There is at the present time no in and out quantified.
--- NOTE | 2019-11-09 09:13 | IPN ---
DATE OF SERVICE: 11/08/2019 TIME: 9:10 a.m. We are following this lady for hemorrhage. Now up to 1400 mL of fluid. Presently, after the low dose of Hemabate plus Methergine plus Cytotec plus IV Pitocin, the uterus is finally responding and is well contracted. The last two evaluations have been minimal bleeding, with a well contracted uterus, 3 below. Blood pressure is 91/61, respirations are 18, pulse 89 and temperature is 97.4. In summary, we had a term gestation with a hemorrhage controlled by medication at the present time. We are going to reevaluate her CBC at 1200 hours. Nicholson catheter is still draining clear urine.
[2019-11-09 09:25] LABS: HEMOGLOBIN 10.3 g/dl (12.0-15.5); MEAN CORPUSCULAR HGB CONC 30.3 g/dl (32.0-36.5); MEAN CORPUSCULAR VOLUME 72.5 fl (80.0-96.0); PLATELET COUNT, AUTOMATED 156 10^3/uL (150-450); RED BLOOD COUNT 4.69 10^6/uL (4.00-5.40); WHITE BLOOD COUNT 8.8 10^3/uL (4.0-10.0)
[2019-11-09 10:00] VITALS: BP 92/56
[2019-11-09] MEDS: PRENATAL VITAMINS CHEWABLE TABLET PO SCH (10:37)
--- NOTE | 2019-11-09 11:15 | IPN ---
DATE: 11/08/2019 This followup on a lady with hemorrhage, approximately 1400 mL, had Pitocin, Cytotec, Hemabate and Methergine. Eventually, her bleeding subsided. She was not feeling very well, dizzy, etc., secondary to her bleed. Presently, we repeated her CBC and hemoglobin is 10.1, hematocrit 33.6 and platelets 149. Admitting hemoglobin was 11.0, hematocrit 36.6 and platelets were 156. Vital signs are stable. Blood pressure 99/74, respirations 18 and pulse 71. There is no evidence of active bleeding. She has got good urinary output. We are expecting to repeat her CBC in 3 hours time and evaluate whether she requires blood. Also, if she is symptomatic with a low hematocrit, we will offer her packed red blood cells. In summary, we have a term gestation with prolonged hemorrhage, now have resolved the issue as far as bleeding and we deal with the symptomatic symptoms of acute blood loss.
--- NOTE | 2019-11-09 11:31 | DN ---
DATE OF DELIVERY: 11/08/2019 33-year-old 4, para 2 admitted in spontaneous labor requesting TOLAC. She had a previous TOLAC tested to 8 pounds 10 ounces. She had an epidural in place, had an ARM at full dilatation with bulging membranes, thin meconium, delivered a live female infant 8 pounds 0 ounces, 3640 grams, scores eight and nine at 1 and 5 minutes respectively. The baby had terminal meconium as well as voiding. Admitting hemoglobin 11.0, hematocrit 36.6 and platelets were 156. She had a spontaneous vaginal delivery of female, uneventful, and had a spontaneous delivery of the placenta complete intact with membranes. Three-vessel cord, but she developed a bleed with a significant amount of bleeding between 700 mL and 900 mL. We upped the Pitocin to 999 per hour. She was given 5 IV push. Subsequent to that she was given a 1000 of Cytotec per rectum, followed by 0.2 of Methergine, still has some trickling going on, is probably now over 1000 mL of loss, but the uterus itself was well contracted. Digital examination of the segment from her previous section was intact. The anterior, posterior and lateral castellanos were complete. The cervix was intact and the sphincter was tight. Our initial impression is that this lady is having a delayed hemorrhage with atonic uterus because of precipitous type delivery and a prolonged labor at home. We will carefully monitor her blood work, reordering a CBC, possibly requiring also a Bakri Balloon, and in an event may require an EUA under general anesthetic. At the present time, her vital signs are stable, blood pressure 118/63, respirations 18, pulse 85. No temperature is available.
--- NOTE | 2019-11-09 13:55 | IPN ---
DATE: 11/09/2019 DAY 1 This lady is a 33-year-old 4, para 3 who came in spontaneous labor at 40 weeks as a successful trial of labor after (TOLAC) of female 8 pounds 0 ounces, 3640 grams, scores of eight and nine at 1 and 5 minutes respectively. Arterial pH was 7.29, base excess was -3.3, venous pH was 7.40, base excess was -3.4. She had a significant hemorrhage requiring IV Pitocin, Cytotec per rectum, Hemabate and Methergine in order to conserve and reduce her bleeding. She had digital examination of the uterus showed that the scar area was intact. She had multiple clots in the uterus, which were evacuated after which time the issue resolved. She had an approximate 1400 mL total loss of blood. She was asymptomatic. Monitoring her hemoglobin her initial hemoglobin 11.5, hematocrit 36.6. Several hours later hemoglobin 10.1, hematocrit 33.6. 5 hours later her hemoglobin was 9.9, hematocrit 32.9. She was a bit symptomatic. She was given IV fluids and the 2000-hour hemoglobin on 11/08/2019 was 9.8, hematocrit 32.3 and platelets were 151 and she is no longer symptomatic. Her blood pressure this morning is 102/64, respirations 18, pulse 88, temperature 97.6. She has always run a low blood pressure, sometimes as low as 93/60. This morning she is normocephalic, atraumatic. Neck full range of motion. Pupils equal and reactive to light. Distal pulses are symmetric. No evidence of deep vein thrombosis (DVT), pulmonary embolism (PE), or superficial phlebitis. Chest is clear bilaterally to the bases. No wheezes or rhonchi. No CVA tenderness. Abdomen soft. Uterus 2 below, four quadrant bowel sounds are noted. Lochia is moderate. She has no rashes, lesions or pruritus. No arthralgia, myalgia. No complaint joint pain. No complaint cough, wheeze, shortness of breath or dyspnea on exertion. No nausea, vomiting, diarrhea or constipation. She is walking around. She went to the bathroom she has voided, passed gas and feels much better. Our plan of management is discharge tomorrow with medications, adding increased amount of iron supplementation and has a 6 weeks checkup with [facility]. In summary we have a term gestation, successful TOLAC, hemorrhage controlled.
[2019-11-09 14:00] VITALS: BP 101/59
[2019-11-09] MEDS: IBUPROFEN 600 MG TAB PO PRN (15:45)
[2019-11-09 18:00] VITALS: BP 111/71
[2019-11-09 22:10] VITALS: BP 105/58
[2019-11-10 06:45] VITALS: BP 97/63
[2019-11-10] MEDS: PRENATAL VITAMINS CHEWABLE TABLET PO SCH (09:02)
--- NOTE | 2019-11-10 10:06 | IPNPDOC ---
Progress Note Date of Service: Nov 10, 2019 Day#: 2 Progress Note PPD 2 SUBJECT: Nery is a 34yo [id number] s/p uncomplicated at term after presenting in active labor, doing well day #2. She has been ambulating, voiding spontaneously without issue and tolerating regular diet. Breast feeding/pumping without issue. Reports lochia is like a normal period. Denies f/c/n/v/CP/SOB. She is desirous of discharge. OBJECTIVE: VITAL SIGNS: Within normal limits, afebrile. A&O x3, WDWN, conversant, sitting up in bed breast pumping Abdomen: Fundus firm at U-2. Soft, NTTP. Extermities: no pain with palpation of calves ASSESSMENT: Nery is a 34yo [id number] s/p uncomplicated at term after presenting in active labor, doing well day #2. Vitals within normal limits, afebrile, hemodynamically stable with no evidence of infection. PLAN: 1. Discharge to home today. 2. Tylenol and Motrin for pain. 3. Encouraged breast feeding and ambulation. 4. Routine PP visit in 6 weeks in clinic. 5. Discussed return precautions at length. 6. Vaginal rest 6 weeks and no heavy lifting Dr. Clarice Padilla MD VS, I&O, 24H, Fishbone Vital Signs/I&O Vital Signs Date Time Temp Pulse Resp B/P (MAP) Pulse Ox O2 Delivery O2 Flow Rate FiO2 11/10/19 06:45 97.9 82 18 97/63 (74) 11/09/19 10:00 98 Clarice Padilla MD Nov 10, 2019 10:06
[2019-11-10] MEDS ORDERED: IBUP80TA PO (10:07)
[2019-11-10] MEDS ORDERED: ACET-683 PO (10:07)
--- NOTE | 2019-11-10 10:10 | DS.PDOC ---
Discharge Summary General Date of Admission Nov 08, 2019 at 05:08 Date of Discharge Nov 10, 2019 Attending Physician: Clarice Padilla MD Discharge Summary PROCEDURES PERFORMED DURING STAY: successful trial of labor after section ADMITTING DIAGNOSES: 1. active labor at term with history of prior DISCHARGE DIAGNOSES: 1. active labor at term with history of prior COMPLICATIONS/CHIEF COMPLAINT: Labor Check. HISTORY OF PRESENT ILLNESS/HOSPITAL COURSE: Nery is a 34yo [id number] s/p uncomplicated at term after presenting in active labor, doing well day #2. She has had a benign course and at time of discharge, vitals are within normal limits, she is afebrile, hemodynamically stable with no evidence of infection. DISCHARGE MEDICATIONS: Please see below. ALLERGIES: Please see below. PHYSICAL EXAMINATION ON DISCHARGE: VITAL SIGNS: Within normal limits, afebrile. A&O x3, WDWN, conversant, sitting up in bed breast pumping Abdomen: Fundus firm at U-2. Soft, NTTP. Extermities: no pain with palpation of calves LABORATORY DATA: Please see below. DIET: regular DISPOSITION: home DISCHARGE PLAN/INSTRUCTIONS: 1. Discharge to home today. 2. Tylenol and Motrin for pain. 3. Encouraged breast feeding and ambulation. 4. Routine PP visit in 6 weeks in clinic. 5. Discussed return precautions at length. 6. Vaginal rest 6 weeks and no heavy lifting DISCHARGE CONDITION: Stable TIME SPENT ON DISCHARGE: Greater than [address] Clarice Padilla MD Vital Signs/I&Os Vital Signs Date Time Temp Pulse Resp B/P (MAP) Pulse Ox O2 Delivery O2 Flow Rate FiO2 11/10/19 06:45 97.9 82 18 97/63 (74) 11/09/19 10:00 98 Discharge Medications Scheduled Ascorbic Acid (Vitamin C) 100 Mg Tablet, 1 TAB PO DAILY, (Reported) Ferrous Sulfate (Iron) 325 Mg Tablet, 1 TAB PO DAILY, (Reported) Pnv No.95/Ferrous Fum/Folic AC ( Vitamin Tablet) 1 Each Tablet, 1 TAB PO DAILY, (Reported) Scheduled PRN Acetaminophen (Acetaminophen) 500 Mg Tablet, 1,000 MG PO Q6HP PRN for PAIN LEVEL 6-10 Ibuprofen (Ibuprofen) 800 Mg Tablet, 800 MG PO Q8HP PRN for PAIN LEVEL 6-10 Allergies Coded Allergies: peach (Verified Allergy, Severe, MOUTH SWELLING, 03/10/19) morphine (Verified Allergy, Unknown, 03/10/19) Clarice Padilla MD Nov 10, 2019 10:10
[2019-11-10 10:26] VITALS: BP 98/59
== END 2019-11-10 12:30 | disposition home or self-care (01) | DRG 806 ==
LOC: M LDO 04:48 → M LDI 05:08 → M OBS 16:08
PROVIDERS: ADMIT Obstetrics & Gynecology; ATTEND Obstetrics & Gynecology
PROC: 10E0XZZ Delivery of Products of Conception, External Approach (ICD-10-PCS; principal; 2019-11-08)
PROC: 10907ZC Drainage of Amniotic Fluid, Therapeutic from Products of Conception, Via Natural or Artificial Opening (ICD-10-PCS; 2019-11-08)
DX: O34.219 Maternal care for unspecified type scar from previous cesarean delivery (principal); Z37.0 Single live birth; O72.1 Other immediate postpartum hemorrhage; Z3A.40 40 weeks gestation of pregnancy; O77.0 Labor and delivery complicated by meconium in amniotic fluid